=== PATIENT | female | born 1985 | race Two or more races ===

== ENCOUNTER 2019-04-16 14:59 | Inpatient (IN) | payer OTHER ==
[~2019-04-16] VITALS: Ht 170.2 cm; Wt 93.4 kg
[2019-05-11] MEDS ORDERED: IRON236 MG PO (06:23)
[2019-05-11] MEDS ORDERED: OBSTETRIX DHA1 EACH (06:23)
== END 2019-05-13 11:51 | disposition home or self-care (01) | DRG 807 ==
LOC: LDR 05-11 05:54 → OB/GYN 05-11 19:34 → SURG 05-12 15:15 → OB/GYN 05-13 11:51
PROVIDERS: ADMIT Obstetrics & Gynecology Maternal & Fetal Medicine
PROC: 10E0XZZ Delivery of Products of Conception, External Approach (ICD-10-PCS; principal; 2019-05-11)
PROC: 0UQMXZZ Repair Vulva, External Approach (ICD-10-PCS; 2019-05-11)
PROC: 0W8NXZZ Division of Female Perineum, External Approach (ICD-10-PCS; 2019-05-11)
PROC: 10907ZC Drainage of Amniotic Fluid, Therapeutic from Products of Conception, Via Natural or Artificial Opening (ICD-10-PCS; 2019-05-11)
PROC: 3E033VJ Introduction of Other Hormone into Peripheral Vein, Percutaneous Approach (ICD-10-PCS; 2019-05-11)
PROC: 4A1HXCZ Monitoring of Products of Conception, Cardiac Rate, External Approach (ICD-10-PCS; 2019-05-11)
DX: O71.82 Other specified trauma to perineum and vulva (principal); Z37.0 Single live birth; Z3A.39 39 weeks gestation of pregnancy; Z22.330 Carrier of Group B streptococcus

== ENCOUNTER 2019-05-10 13:07 | Outpatient (CLI) | payer OTHER ==
[2019-05-11] MEDS ORDERED: IRON236 MG PO (06:23)
[2019-05-11] MEDS ORDERED: OBSTETRIX DHA1 EACH (06:23)
== END 2019-05-10 14:54 | disposition home or self-care (01) ==
LOC: NST 13:07
DX: Z34.83 Encounter for supervision of other normal pregnancy, third trimester (principal)